=== PATIENT | female | born 1995 | race African-American/Black ===

== ENCOUNTER 2020-02-15 19:53 | Emergency (ER) | payer SELFPAY ==
[~2020-02-15] VITALS: Ht 167.6 cm; Wt 72.0 kg
[2020-02-15 20:01] VITALS: BP 117/60
== END 2020-02-15 20:16 | disposition left against medical advice (07) ==
LOC: ER 19:53
DX: R10.30 Lower abdominal pain, unspecified (principal); Z53.21 Procedure and treatment not carried out due to patient leaving prior to being seen by health care provider